=== PATIENT | male | born 1960 | race Caucasian/White ===

== ENCOUNTER 2017-02-16 05:27 | Emergency (ER) | payer MEDICAID ==
[~2017-02-16] VITALS: Ht 177.8 cm; Wt 84.0 kg
[2017-02-16] MEDS ORDERED: HYDR-309 PO (05:36)
[2017-02-16 05:51] LABS: BASOPHILS # (AUTO) 0.04 K/uL (0.00-0.20); BASOPHILS % (AUTO) 0.4 % (0.0-2.0); EOSINOPHILS # (AUTO) 0.01 K/uL (0.00-0.70); EOSINOPHILS % (AUTO) 0.06 % (1.0-6.0); HEMATOCRIT 47.9 % (41-53); LYMPHOCYTES # (AUTO) 1.8 K/uL (1.0-4.8); LYMPHOCYTES % (AUTO) 15.7 % (22.0-44.0); MEAN CORPUSCULAR HEMOGLOBIN 24.5 pg (26.0-34.0); MEAN CORPUSCULAR HGB CONC 31.4 G/dL (31.0-37.0); MEAN CORPUSCULAR VOLUME 78 fL (80-100); MONOCYTES % (AUTO) 8.8 % (2.0-9.0); NEUTROPHILS # (AUTO) 8.5 K/uL (1.8-7.7); NEUTROPHILS % (AUTO) 75.1 % (40.0-70.0); PLATELET COUNT (AUTO) 297 K/uL (150-450); RED BLOOD CELL COUNT(AUTO) 6.15 MIL/uL (4.50-5.90); RED CELL DISTRIBUTION WIDTH 15.2 % (11.5-14.5); WHITE BLOOD COUNT (AUTO) 11.3 K/uL (4.5-11.0)
[2017-02-16 06:03] LABS: PROTHROMBIN TIME 10.7 SEC (9.4-11.6)
[2017-02-16 06:10] LABS: ALBUMIN 4.3 g/dL (3.4-5.0); BILIRUBIN,TOTAL 0.7 mg/dL (0.1-1.0); CREATININE 1.51 mg/dL (0.60-1.30); POTASSIUM 4.3 mmol/L (3.5-5.1); TOTAL PROTEIN, SERUM 9.1 g/dL (6.4-8.2)
[2017-02-16 06:17] LABS: CALCIUM, TOTAL 11.7 mg/dL (8.8-10.5)
[2017-02-16 06:28] LABS: RBC MORPHOLOGY COMMENT ABNORMAL RBC MORPH
[2017-02-16] MEDS ORDERED: MORPHINE SULFATE 4 MG/ML SYRINGE IVP ONE (06:45)
[2017-02-16] MEDS ORDERED: SODIUM CHLORIDE 0.9% 1,000 ML IV ONE (06:45)
[2017-02-16] MEDS ORDERED: ONDANSETRON HCL 4 MG/2 ML VIAL IVP ONE (06:45)
[2017-02-16] MEDS ORDERED: FAMOTIDINE 10 MG/ML 2 ML VIAL IVP ONE (06:45)
[2017-02-16 08:07] LABS: GLUCOSE, URINE (UA) NEGATIVE (NEGATIVE); KETONES,URINE TRACE mg/dL (NEGATIVE); LEUKOCYTE ESTERASE ,URINE NEGATIVE (NEGATIVE); OCCULT BLOOD,URINE NEGATIVE (NEGATIVE); PROTEIN,URINE NEGATIVE (NEGATIVE)
[2017-02-16 08:08] LABS: ADD UA MICROSCOPIC NO; APPEARANCE,URINE CLEAR (CLEAR)
[2017-02-16] MEDS ORDERED: KETOROLAC TROMETHAMINE 30 MG/ML VIAL IVP ONE (09:30)
[2017-02-16 11:15] VITALS: BP 148/93
== END 2017-02-16 12:10 | disposition home or self-care (01) ==
LOC: EMS 05:29
DX: R10.13 Epigastric pain (principal); R11.2 Nausea with vomiting, unspecified; E83.52 Hypercalcemia; I10 Essential (primary) hypertension
CPT/HCPCS: 36415; 70450; 76705; 80053; 80307; 81003; 82310; 82330; 83690; 84484; 85025; 85610; 85730; 93005; 96361; 96374; 96375; 99285; G0480; J1885; J2270; J2405; J3490; J7030

== ENCOUNTER 2017-09-12 01:03 | Emergency (ER) | payer MEDICAID, OTHER ==
[~2017-09-12] VITALS: Ht 177.8 cm; Wt 98.0 kg
[~2017-09-12 01:03] MED LIST: HYDR-309 PO
[2017-09-12 01:21] VITALS: BP 145/92
== END 2017-09-12 02:03 | disposition home or self-care (01) ==
LOC: EMS 01:04
DX: M54.5 Low back pain (principal); I10 Essential (primary) hypertension; Z98.890 Other specified postprocedural states
CPT/HCPCS: 99281

== ENCOUNTER 2022-10-19 14:41 | Emergency (ER) | payer OTHER ==
[~2022-10-19] VITALS: Ht 180.3 cm; Wt 92.3 kg
[2022-10-19] MEDS ORDERED: HYDROCODONE/ACETAMINOPHEN 5-325 MG TABLET PO ONE (16:30)
[2022-10-19 18:00] VITALS: BP 146/85
[2022-10-19] MEDS ORDERED: CYCL-448 PO (18:44)
== END 2022-10-19 18:41 | disposition home or self-care (01) ==
LOC: EMS 15:04
DX: M54.50 Low back pain, unspecified (principal); I10 Essential (primary) hypertension; G43.909 Migraine, unspecified, not intractable, without status migrainosus; V98.8XXA Other specified transport accidents, initial encounter; Y93.89 Activity, other specified; Y92.89 Other specified places as the place of occurrence of the external cause; Y99.8 Other external cause status
CPT/HCPCS: 72040; 72100; 99284; Z7502; Z7610

== ENCOUNTER 2024-10-12 16:44 | Emergency (ER) | payer OTHER ==
[~2024-10-12] VITALS: Ht 180.3 cm; Wt 90.9 kg
[~2024-10-12 16:44] MED LIST changes: +CYCL-448 PO; -HYDR-309 PO
[2024-10-12 17:19] VITALS: BP 148/106; PULSE 92; RESP 18; TEMP 98.6; O2SAT 97
[2024-10-12 18:48] LABS: COVID AG,FIA SOURCE NASAL SWAB
[2024-10-12 18:54] LABS: SARS-COV2 (COVID) ANTIGEN,FIA Negative (Negative)
[2024-10-12 19:09] LABS: INFLUENZA TYPE B NEGATIVE FOR TYPE B (NEGATIVE)
[2024-10-12 20:16] LABS: INFLUENZA TYPE A POSITIVE FOR TYPE A (NEGATIVE)
== END 2024-10-12 18:54 | disposition left against medical advice (07) ==
LOC: EMS 16:44
DX: R50.9 Fever, unspecified (principal); R05.9 Cough, unspecified; R09.81 Nasal congestion; I10 Essential (primary) hypertension; Z20.822 Contact with and (suspected) exposure to COVID-19
CPT/HCPCS: 71045; 87804; 99284

== ENCOUNTER 2025-06-06 01:27 | Emergency (ER) | payer OTHER ==
[~2025-06-06] VITALS: Ht 177.8 cm; Wt 93.2 kg
[2025-06-06 02:20] VITALS: TEMP 98.1
[2025-06-06 03:21] VITALS: BP 129/67; PULSE 89; RESP 17; O2SAT 100
[2025-06-06] MEDS ORDERED: TRAM50TA5 PO (03:33)
[2025-06-06] MEDS ORDERED: SULF1TAB42 PO (03:33)
[2025-06-06] MEDS: PERTUSS(ACELL),DIPH,TET/PF 0.5 ML SYRINGE [ADULT] IM. ONE (03:50)
[2025-06-06] MEDS: SULFAMETHOX/TRIMETH DS 800-160 MG/TABLET PO ONE (03:50)
== END 2025-06-06 04:38 | disposition home or self-care (01) ==
LOC: EMS 01:28
DX: S61.215A Laceration without foreign body of left ring finger without damage to nail, initial encounter (principal); I10 Essential (primary) hypertension; G89.29 Other chronic pain; F17.210 Nicotine dependence, cigarettes, uncomplicated; Z79.899 Other long term (current) drug therapy; W26.8XXA Contact with other sharp object(s), not elsewhere classified, initial encounter; Y93.89 Activity, other specified; Y92.89 Other specified places as the place of occurrence of the external cause; Y99.8 Other external cause status
CPT/HCPCS: 90471; 90715; 99283